=== PATIENT | male | born 1965 | race African-American/Black ===

== ENCOUNTER → 2016-08-22 | Day surgery (SDC) | payer OTHER ==
[~2016-08-22] MED LIST: AMITRIPTYLINE100 MG PO; ASPIRIN81 M2 PO; BALANCED B-100100 MG; COUMADIN4 MG PO; FERROUS SULFAT325 MG; FLEXERIL10 MG PO; LIPITOR80 MG PO; LOVENOX80 MG/0.8 INJ; NEURONTIN800 MG; PANTOPRAZOLE SO40 MG PO; PROMETHAZINE W118 M1 PO; QUETIAPINE FUM100 MG PO; TOPROL XL100 MG PO; TRILEPTAL300 MG PO; ZESTRIL10 MG PO
--- NOTE | ~2016-08-22 | OR ---
Unit #: [id number] #: [id number] Patient: SHAHLA SANCHEZ [id number] [place], [place] [address] [id number] O MR#: [id number] NAME: SHAHLA SANCHEZ ROOM: Date of Procedure: 08/22/2016 Admission Date: 08/22/2016 Surgeon: Tien Griggs M.D. : 1965 Attending Physician: Tien Griggs M.D. Primary Care Physician: Primary Care Physician No OPERATIVE REPORT JOB NOTE: CC: IMYA JONES. PROCEDURES PERFORMED Esophagogastroduodenoscopy with biopsy, colonoscopy to transverse colon. INDICATIONS FOR PROCEDURE A 50-year-old gentleman with iron-deficiency anemia, also average risk for colorectal cancer, here for upper endoscopy and colonoscopy. MEDICATIONS Monitored anesthesia. POSTOPERATIVE FINDINGS 1. Small hiatal hernia. 2. Mild gastritis. Biopsies were taken. 3. Normal duodenum and distal duodenum. 4. Colonoscopy completed to transverse colon, could not go any further, because of redundant colon and extensive looping despite maneuvering. 5. Visualized part of the colonic mucosa was normal with no polyps, masses, or colitis. 6. Large internal hemorrhoids. PLAN We will need a barium enema for completion of the colon visualization. DESCRIPTION OF PROCEDURE The patient was explained of the procedure, risks, and benefits along with risks and benefits of anesthesia. He was brought to the endoscopy room. Propofol anesthesia was given. Bite block was placed. The scope was passed down the mouth into esophagus, stomach, duodenum, and distal duodenum. Findings as described. Biopsies were taken. Gently, I pulled it out of the patient's mouth. At this time, he was turned around and repositioned for colonoscopy. Rectal exam was done, which was normal. Colonoscope was lubricated, passed up the rectum, advanced under direct vision all the way to transverse colon. I could not go any further, because of redundancy of the colon despite maneuvering. At this point, I started to pull the scope out carefully looking. Mucosa was normal and healthy. I retroflexed in the rectum, large internal hemorrhoids noted. Gently, the scope was pulled out. He tolerated it well. Unit #: [id number] #: [id number] Patient: SHAHLA SANCHEZ Dictated by... Sudheer Ko/kate TD: 08/22/2016 13:28 JOB #: [id number] OPERATIVE REPORT Page 1 of 1 X Tien Griggs MD X PROCEDURE OPERATIVE NOTE
== END | disposition home or self-care (01) ==
LOC: COPS 07:24
DX: Z12.11 Encounter for screening for malignant neoplasm of colon (principal); K29.50 Unspecified chronic gastritis without bleeding; D50.9 Iron deficiency anemia, unspecified; K44.9 Diaphragmatic hernia without obstruction or gangrene; K64.8 Other hemorrhoids; K21.9 Gastro-esophageal reflux disease without esophagitis; I25.10 Atherosclerotic heart disease of native coronary artery without angina pectoris; I10 Essential (primary) hypertension; I48.91 Unspecified atrial fibrillation; G47.30 Sleep apnea, unspecified; M19.90 Unspecified osteoarthritis, unspecified site; F17.210 Nicotine dependence, cigarettes, uncomplicated; Z86.73 Personal history of transient ischemic attack (TIA), and cerebral infarction without residual deficits; Z79.82 Long term (current) use of aspirin; Z79.01 Long term (current) use of anticoagulants; Z79.899 Other long term (current) drug therapy; Z95.1 Presence of aortocoronary bypass graft; Z95.5 Presence of coronary angioplasty implant and graft; Z98.890 Other specified postprocedural states
CPT/HCPCS: 88305; 88312; J2250

== ENCOUNTER → 2016-09-10 | Outpatient (CLI) | payer OTHER ==
--- NOTE | ~2016-09-10 | CR7 ---
[facility] A Service of [facility] RADIOLOGY TEXT RESULTS PATIENT: SHAHLA SANCHEZ LOCATION: [facility] : [birth year] UNIT #: [id number] AGE: [address]: Tien Griggs MD SEX: M ORDER DR: [id number] [facility] [address] [place], [place] [address] [id number] O MR#: [id number] Acc #: [id number] NAME: SHAHLA SANCHEZ : 1965 SEX: M STUDY DATE/TIME: 09/10/2016 10:02 UNIT: [facility] ROOM: STUDY DESCRIPTION: CR Abdomen Single AP View Attending Physician: Tien Griggs M.D. Referring Physician: Tien Griggs M.D. Ordering Physician: Tien Griggs M.D. Primary Care Physician: No Primary Care Physician MEDICAL IMAGING REPORT This report is preliminary unless electronic signature is present EXAM Single view abdomen. 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 Incomplete colonoscopy. FINDINGS AP view of the abdomen without comparison. There is an incomplete bowel prep with a moderate volume of stool in the transverse colon. Given the need for complete bowel prep for appropriate colon cancer screening, the patient should continue the bowel prep and be rescheduled. A small bowel gas pattern is nonobstructive. No acute osseous abnormalities. IMPRESSION Incomplete bowel prep for the barium enema. The patient should repeat the bowel prep and be rescheduled for another day. Dictated by... Handy Ferrari M.D. THIS IS AN ELECTRONICALLY VERIFIED REPORT Handy Ferrari M.D. at 09/10/2016 4:48 PM JUSTIN/jack TD: 09/10/2016 15:55 JOB #: [id number] MEDICAL IMAGING REPORT Page 1 of 1 COPY
== END | disposition home or self-care (01) ==
LOC: CRAD 09:29
DX: D50.9 Iron deficiency anemia, unspecified (principal)
CPT/HCPCS: 74000

== ENCOUNTER → 2016-09-17 | Outpatient (CLI) | payer OTHER ==
--- NOTE | ~2016-09-17 | CR7 ---
[facility] A Service of [facility] RADIOLOGY TEXT RESULTS PATIENT: SHAHLA SANCHEZ LOCATION: [facility] : 65 UNIT #: [id number] AGE: [address]: Tien Griggs MD SEX: M ORDER DR: [id number] [facility] [address] [facility] [place], [place] [address] [id number] O MR#: [id number] Acc #: [id number] NAME: SHAHLA SANCHEZ : 1965 SEX: M STUDY DATE/TIME: 09/17/2016 10:51 UNIT: [facility] ROOM: STUDY DESCRIPTION: CR Abdomen Single AP View Attending Physician: Tien Griggs M.D. Referring Physician: Tien Griggs M.D. Ordering Physician: Tien Griggs M.D. MEDICAL IMAGING REPORT This report is preliminary unless electronic signature is present EXAM Frontal abdomen 09/17/2016 INDICATIONS Incomplete colonoscopy. Blood in stool. Symptoms began 2 weeks ago. Tobacco abuse. TECHNIQUE Frontal abdomen was performed and compared with 09/18/2016. FINDINGS There are probable vascular calcifications in the pelvis. Mild degenerative change of both hips. Bowel gas pattern demonstrates no dilated air-filled loops of small or large bowel. There is gaseous distension of the colon. Fecal material present in the right colon. No suspicious calcifications. IMPRESSION 1. Nonspecific but non-obstructive bowel gas pattern. Probable vascular calcifications in the pelvis. Dictated by... Karsten David M.D. THIS IS AN ELECTRONICALLY VERIFIED REPORT Karsten David M.D. at 09/18/2016 9:17 AM KIARA/claudia TD: 09/17/2016 23:38 JOB #: [id number] [facility] A Service of [facility] RADIOLOGY TEXT RESULTS PATIENT: SHAHLA SANCHEZ LOCATION: [facility] : 65 UNIT #: [id number] AGE: [address]: Tien Griggs MD SEX: M ORDER DR: MEDICAL IMAGING REPORT Page 1 of 1 COPY
== END | disposition home or self-care (01) ==
LOC: CRAD 09:30
DX: D50.9 Iron deficiency anemia, unspecified (principal); Z53.9 Procedure and treatment not carried out, unspecified reason
CPT/HCPCS: 74000